=== PATIENT | female | born 1935 | race Caucasian/White ===

== ENCOUNTER → 2020-03-03 11:59 | Outpatient (CLI) | payer MEDICARE, OTHER ==
[2016-08-30 11:05] VITALS: BMI 26.4
[~2020-03-03 11:59] MED LIST: AMOXICILLIN500 M1 PO; BENICAR40 MG PO; FLUTICASONE PRO16 GM NASAL; FUROSEMIDE40 MG PO; LISINOPRIL5 MG PO; MOBIC7.5 MG PO; POTASSIUM CHLO10 ME1 PO; ULTRAM50 MG PO; ZANTAC150 MG PO; ZEBETA5 MG PO
== END | disposition home or self-care (01) ==
LOC: D.HCCECHO 11:59
PROVIDERS: ATTEND Internal Medicine Cardiovascular Disease
DX: I42.9 Cardiomyopathy, unspecified (principal)

== ENCOUNTER → 2020-12-28 12:52 | Outpatient (CLI) | payer MEDICARE, OTHER ==
[2016-08-30 11:05] VITALS: BMI 26.4
== END | disposition home or self-care (01) ==
LOC: D.HCCECHO 12:52
PROVIDERS: ATTEND Internal Medicine Cardiovascular Disease
DX: I42.9 Cardiomyopathy, unspecified (principal)

== ENCOUNTER 2021-01-06 11:26 | Day surgery (SDC) | payer MEDICARE, OTHER ==
[~2021-01-06] VITALS: Ht 152.4 cm; Wt 59.1 kg
--- NOTE | ~2021-01-06 | HEMODYNAMI ---
PATIENT:ADAL BE MEDICAL RECORD: [id number] : 33 LOCATION:[facility] ADMISSION DATE: 01/06/21 Generatedon:113:55 Patient name: ADAL BE Patient #: [id number] SSN: [id number] : 1935 Date of study: 01/06/2021 Page: Of Hemodynamic Procedure Report Patient Data Patient Demographics Procedure consent was obtained First Name: ADAL Gender: Female Last Name: HAILE : 1935 [facility] Initial: J Age: 85 year(s) Patient #: [id number] Race: SSN: [id number] Additional ID: [id number] Contact details [address]: [address] [place] [address] State: [place] City: [place] Zip code: [address] Past Medical History Allergies Allergen Reaction Date Comments Reported Other allergy 01/06/2021 [facility] Admission Admission Data Admission Date: 01/06/2021 Admission Time: 11:26 Arrival Date: 01/06/2021 Arrival Time: 0:00 Admit Source: Other Insurance Payor: Medicare [facility] #: [id number] Lab Results Lab Result Date: 01/06/2021 Lab Result Time: 0:00 Biochemistry Name Units Result Min Max BUN mg/dl 26 --(----)-* 7 18 Creatinine mg/dl 1 --(--*-)-- 0.6 1.3 eGFR ml/min 56 *-(----)-- 90 120 NONAFRICAN CBC Name Units Result Min Max Hematocrit % 39.9 -*(----)-- 42 54 Hemoglobin g/dl 13.1 -*(----)-- 13.5 17.5 Procedure Procedure Types Cath Procedure Diagnostic Procedure RIAN Procedure Description Procedure Date Procedure Date: 01/06/2021 Procedure Start Time: 0:00 Procedure Staff Name Function Taj Spicer MD Performing Physician Eleonora Valadez RT Monitor Jumana Willett RT Scrub Kristin Verma Development Technician Yobanygrover Calvin ROBERTO Additional personnel Elvin Hastings RN Nurse Indication Dyspnea Procedure Data Procedure Complications No complications Procedure Medications Medication Administration Route Dosage 0.9% NaCl I.V. 100 ml/hr Oxygen etCO2 Nasal cannula 2 l/min Hurricaine [place] P.O. Sprays Refer to Anesthesia Notes for Sedation Medications Oxygen etCO2 Nasal cannula 5 l/min Hemodynamics Rest HGB: 13.1 (g/dl) Heart Rate: 80 (bpm) Snapshots Pre Cath Intra NCS Post Cath Vital Signs Time Heart Resp SPO2 etCO2 NIBP (mmHg) Rhythm Pain Sedation Rate (ipm) (%) (mmHg) Status Level (bpm) 13:22:32 72 11 99 15.2 153/72(100) Paced 0 (11) 10(A) , No pain 13:26:55 69 12 100 26.6 145/72(102) Paced 0 (11) 10(A) , No pain 13:31:17 70 12 100 16.7 140/73(91) Paced 0 (11) 10(A) , No pain 13:35:43 69 12 100 28.9 139/76(124) Paced 0 (11) 10(A) , No pain 13:39:59 74 18 100 14.4 142/78(109) Paced 0 (11) 10(A) , No pain 13:44:35 69 12 100 12.2 114/62(73) Paced 0 (11) 8(A) , No pain 13:48:52 69 14 96 1.5 106/56(86) Paced 0 (11) 9(A) , No pain 13:53:04 69 15 96 34.3 108/54(87) Paced 0 (11) 9(A) , No pain Medications Time Medication Route Dose Verified Delivered Reason Notes Effect iveness by by 13:24:53 0.9% NaCl I.V. 100 Buffie Buffie Per ml/hr Mikaela Al RN physician 13:25:32 Oxygen etCO2 2 Buffie Buffie for low 02 Nasal l/min Mikaela Al RN sats cannula 13:41:49 Hurricaine P.O. Sprays Elvin Gonzalez for local [place] Darling Boyce MD anesthetic RN 13:43:53 Refer to Elvin Anesthesia Anesthesia Darling Mcallister for RN Sedation Medications 13:45:34 Oxygen etCO2 5 Elvin Elvin for low 02 Nasal l/min Darling Hastings RN sats cannula straightener Log Time Note 12::19 Informed consent obtained and on chart 12:28:15 Diagnostic Cath Status : Elective 12:28:49 Indication : Dyspnea 12:28:52 Arrival Date: 01/06/2021 12:00:00 AM 12:28:53 Admit Source: Other 12:28:58 Insurance Payor : Medicare 12:30:09 ACC Patient presents with Stable Angina CCS Anginal Class 2--Slight limitation of ordinary activity. 12:30:12 Procedure Status RINA. 12:30:14 Time tracking: Regular hours (M-F 7:00 - 5:00) 12:30:19 Plan of Care:Hemodynamics will remain stable., Cardiac rhythm will remain stable., Comfort level will be maintained., Respiratory function will remain adequate., Patient/ family verbilizes understanding of procedure., Procedure tolerated without complication., Recovers from procedure without complications.. 12:30:29 H&P Date Dictated: 12/23/2020 Within 30 days and on chart.. 12:30:30 Pre-procedure instructions explained to patient. 12:30:31 Pre-op teaching completed and patient verbalized understanding. 12:30:32 Family unavailable. 12:30:34 Patient NPO since Midnight. 12:30:46 Patient allergic to Other allergyTALWIN 12:31:06 Stress Test: no; N/A ? 13:12:46 Jumana Willett RT(R) sent for patient. Start room use. 13:17:18 Patient received from Pre/Post Procedure Room to CCL 1 Alert and oriented. Tansferred to table in Supine position. 13:17:29 Warm blankets applied, and alireza hugger turned on for patient comfort. 13:17:30 Correct patient and procedure confirmed by team. 13:17:30 ECG and BP/O2 sat monitors applied to patient. 13:17:35 Full Disclosure recording started 13:18:46 Alarms reviewed by R. N. 13:18:47 Sharps counted by scrub and verified by R.N. 13:18:56 Is the patient allergic to Iodine/contrast media? No. 13:18:57 Was the patient premedicated? Yes 13:18:59 Is patient on blood thinner?No 13:19:17 Patient diabetic? No. 13:19:19 ----Pre-sedation anethsthesia assessment.---- 13:19:24 Previous problem with sedation/anesthesia? No ? 13:19:38 Snore? Yes 13:19:39 Sleep apnea? No 13:19:43 Deviated septum? No 13:19:44 Opens mouth fully? Yes 13:19:46 Sticks out tongue? Yes 13:19:49 Airway obstruction? No ? 13:19:53 Dentures? No ? 13:20:00 Patient pain scale 0/10 ?. 13:20:16 IV patent on arrival in left antecubital with 0.9% NaCl at [facility]. 13:21:21 Vital chart was started 13:21:35 Baseline sample Acquired. 13:22:08 Rhythm: paced 13:24:53 0.9% NaCl 100 ml/hr I.V. was administered by Saeed Al RN; Per physician; Verbal order read back and verified. 13:25:32 Oxygen 2 l/min etCO2 Nasal cannula was administered by Saeed Al RN; for low 02 sats; Verbal order read back and verified. 13:32:29 [facility] Elastic Attacher Overlock present for RINA. 13:37:01 Yobany Calvin CRNA present and monitoring patient for TIVA. 13:38:36 Lab results completed and on chart. 13:39:09 Lab Result : BUN 26 mg/dl 13:39:09 Lab Result : Creatinine 1 mg/dl 13:39:09 Lab Result : eGFR NONAFRICAN 56 ml/min 13:39:09 Lab Result : Hemoglobin 13.1 g/dl 13:39:09 Lab Result : Hematocrit 39.9 % 13:39:12 --------ALL STOP TIME OUT------ 13:39:12 Final Timeout: patient, procedure, and site verified with staff and physician. All members of the team are in agreement. 13:39:17 Fire Safety Assessment: A--An alcohol-based skin anteseptic being used preoperatively., C--Open oxygen or nitrous oxide is being used., D--An ESU, laser, or fiber-optic light is being used. 13:39:21 Physical assessment completed. ASA score P 2 - A patient with mild systemic disease as per Taj Spicer MD. 13:39:26 Sedation plan: TIVA Medication:Propofol 13:41:49 Hurricaine [place] Sprays P.O. was administered by Taj Spicer MD; for local anesthetic; Verbal order read back and verified. 13:43:53 Refer to Anesthesia Notes for Sedation Medications was administered by Anesthesia; ; Verbal order read back and verified. 13:45:31 RINA 13:45:31 RINA started. 13:45:34 Oxygen 5 l/min etCO2 Nasal cannula was administered by Elvin Hastings RN; for low 02 sats; Verbal order read back and verified. 13:51:04 RINA completed. 13:52:02 Procedure ended.(Physican Out) 13:52:29 Post-procedure physical assessment completed. ASA score P 2 - A patient with mild systemic disease as per Taj Spicer MD. 13:52:51 RINA Findings: no vegetation noted 13:52:56 RINA Findings: other (see operative note) 13:53:08 Post procedure rhythm: unchanged. 13:53:11 Post procedure instruction explained to patient.Patient verbalizes understanding. 13:53:11 Patient needs reinforcement of post procedure teaching. 13:53:23 Procedure type changed to Cath procedure, Diagnostic procedure, RINA 13:53:42 Procedure and supply charges have been captured, reviewed, submitted and are correct. 13:53:45 Procedure Complication : No complications 13:53:48 Vital chart was stopped 13:53:54 Operative report dictated upon procedure completion. 13:53:54 See physician's report for complete and final results. 13:53:56 Report given to Pre/Post Procedure Room. 13:54:00 Patient transfered to Pre/Post Procedure Room with Stretcher. 13:54:04 End room use (Document Last) Signature Audit [place] Stage Time Signature Unsigned Intra-Procedure 01/06/2021 Eleonora Valadez 1:54:26 PM RT(R) Intra-Procedure 01/06/2021 Elvin 1:54:45 PM Darling GOODE Intra-Procedure 01/06/2021 Taj Gonzalez 1:55:25 PM Austen [facility] [address] [place] [address]
[2021-01-06] MEDS ORDERED: COREG25 MG PO (12:00)
[2021-01-06] MEDS ORDERED: ENTRESTO 49 MG1 EACH PO (12:00)
[2021-01-06] MEDS ORDERED: IBUPROFEN200 MG PO (12:01)
[2021-01-06] MEDS ORDERED: GABAPENTIN300 MG PO (12:01)
[2021-01-06 12:10] VITALS: BP 144/61; Ht 152.4 cm; Wt 59.1 kg
[2021-01-06 12:43] LABS: ANION GAP 12.6 mmol/L (8-16); CALCIUM 9.8 mg/dL (8.5-10.1); CARBON DIOXIDE 29.4 mmol/L (21.0-32.0)
[2021-01-06 12:47] LABS: BASOPHILS 0.3 % (0-2); EOSINOPHILS 2.1 % (0-7); HEMATOCRIT 39.9 % (36.0-48.0); HEMOGLOBIN 13.1 g/dL (12-16); IMMATURE GRANULOCYTES 0.2 % (0-5); LYMPHOCYTE ABS# 1.25 10x3/uL (1.18-3.74); LYMPHOCYTES 19.1 % (15-50); MCHC 32.8 g/dL (31.0-37.0); MCV 91.3 fL (80.0-100.0); MEAN PLATELET VOLUME 10.2 fL (7.4-10.4); NEUTROPHIL ABS# 4.55 10x3/uL (1.56-6.13); NEUTROPHILS 69.3 % (40-80); PLATELET COUNT 135 10x3/uL (130-400); RBC 4.37 10x6/uL (4.00-5.40); RDW 13.9 % (11.5-14.5); WBC 6.6 10x3/uL (4.8-10.8)
--- NOTE | 2021-01-06 14:07 | NUR ---
PT ARRIVED BY STRETCHER. PLACED ON MONITORS. ASSESSMENT COMPLETED. VSS. FAMILY AT BEDSIDE. CALL LIGHT WITHIN REACH.
[2021-01-06] MEDS ORDERED: ALDACTONE25 MG PO (14:15)
--- NOTE | 2021-01-06 14:22 | NUR ---
PT RESTING COMFORTABLY. VSS AT THIS TIME. PT IS A-V PACED AT A RATE OF 70. EASILY AROUSED FROM SLEEP. DENIES ANY DIFFICULTY BREATHING OR SWALLOWING AT THIS TIME. FAMILY AT BEDSIDE. DR. FERNANDO ROUNDED AND UPDATED PT AND PT'S . CALL LIGHT WITHIN REACH.
--- NOTE | 2021-01-06 14:45 | NUR ---
PIV D/C'D WITH CATH TIP INTACT. TOLERATED WELL. VSS. MONITORS REMOVED. PT INSTRUCTED TO GET UP AND DRESSED AT THIS TIME. NO ASSISTANCE NEEDED.
--- NOTE | 2021-01-06 14:50 | NUR ---
DISCUSSED DISCHARGE INSTRUCTIONS WITH PT. SHE VOICED UNDERSTANDING. PT AMBULATED TO RESTROOM AND VOIDED WITHOUT DIFFICULTY.
--- NOTE | 2021-01-06 15:00 | NUR ---
PT TAKEN OUT TO VEHICLE BY WHEELCHAIR. NO S/S OF DISTRESS NOTED. ALL BELONGINGS AND PAPERWORK IN HAND.
--- NOTE | 2021-01-07 09:58 | TEE ---
PATIENT:ADAL BE MEDICAL RECORD: [id number] LOCATION:[facility] AGE OF PATIENT: 85 ADMISSION DATE: 01/06/21 SEX: F REFERRING PHYSICIAN: INTERPRETING PHYSICIAN: NATHAN FERNANDO MD TRANSESOPHAGEAL ECHOCARDIOGRAM Date: 01/06/21 RINA CHARGE Y INDICATIONS: MITRAL REGURG PREMEDICATIONS: PATIENT'S RESPONSE PROCEDURE DOPPLER MEASUREMENTS: LVIT LA PA RA LVOT RVOT Asc. Ao AV Gradient Peak AV Mean AV Area MV Gradient Peak MV Mean MV Area INTERPRETATION: Doppler: 2-D: COLOR FLOW DOPPLER NORMAL SALINE STUDY: MISCELLANOUS: DIAGNOSIS: PLAN: [place] Stitcher:3 Dr. Bruno Batch Plant Operator: Lizzy ALBA COMMENTS: DATE OF SERVICE: 01/06/2021 TRANSESOPHAGEAL NOTE After general sedation via TIVA anesthesia, transesophageal Omniplane probe was placed in the distal esophagus and proximal stomach without difficulty. FINDINGS: LVH present. LV internal dimensions are normal. There is mild LV hypo with EF lower limits of normal at 45-50%. Aortic valve is sclerotic; TRANSESOPHAGEAL ECHOCARDIOGRAM REPORT [id number] ADAL BE however, there is good valve excursion. Mild AI by color flow imaging. Left atrium appears mildly dilated. Mitral valve shows no prolapse, mild MR. Right side is grossly normal. Mild TR. PROCEDURE: The transesophageal Omniplane probe was turned posteriorly and this shows minimal atherosclerotic debris in the descending aorta. IMPRESSION: Mild cardiomyopathy, minimal valve dysfunction. Give breathlessness and fluid retention, we will add Aldactone to her medical regime. Further based on clinical course. TRANSINT:[id number] Voice Confirmation ID: [id number] DOCUMENT ID: [id number] at [id number] CC: [id number] DICTATION DATE: 01/06/21 1408 SEPTIC TECHNICIAN: 01/07/21 0048 [facility] 01/06/21 [id number] [place] [address]
== END 2021-01-06 15:00 | disposition home or self-care (01) ==
LOC: D.CATH 11:26
PROVIDERS: ATTEND Internal Medicine Interventional Cardiology
DX: R06.09 Other forms of dyspnea (principal); I50.9 Heart failure, unspecified; I42.9 Cardiomyopathy, unspecified; Z95.810 Presence of automatic (implantable) cardiac defibrillator